=== PATIENT | male | born 1965 | race Caucasian/White ===

== ENCOUNTER 2019-01-21 20:23 | Inpatient (IN) ==
[2019-01-21 22:20] LABS: BASO# 0.05 X1000 (0.0-0.2); BASO% 0.4 % (0.0-0.8); EOS# 0.15 X1000 (0.0-0.7); EOS% 1.2 % (0.0-10.0); HEMATOCRIT 37.4 % (42.0-52.0); HEMOGLOBIN 12.7 g/dL (14.0-18.0); IMM GRAN# 0.06 X1000 (0.0-0.04); IMM GRAN% 0.5 % (0.0-0.5); LYMPH# 1.87 X1000 (1.2-3.4); LYMPH% 14.6 % (20.5-51.1); MCH 30.8 PG (27-31); MCV 90.8 FL (81-99); MONO# 0.99 X1000 (0.11-0.59); MONO% 7.7 % (1.7-9.3); MPV 11.1 FL (7.4-10.4); NEUT# 9.67 X1000 (1.4-6.5); NEUT% 75.6 % (42.2-75.2); PLT 267 X1000 (130-400); RBC 4.12 XMIL (4.7-6.1); RDW 12.3 % (11.5-14.5); WBC 12.79 X1000 (4.8-10.8)
[2019-01-21 23:09] LABS: AGAP 17; ALB/GLOB RATIO 1.6; ALBUMIN 4.1 g/dL (3.5-5.0); ALKALINE PHOSPHATASE 92 U/L (32-122); BUN 16 mg/dL (8-22); CALCIUM 9.5 mg/dL (8.8-10.2); CHLORIDE 99 mmol/L (98-107); COSMO 278; CREATININE 1.4 mg/dL (0.7-1.2); ESTIMATED GFR 53; GLUCOSE 183 mg/dL (70-104); GOT 16 U/L (10-34); GPT 15 U/L (10-44); POTASSIUM 4.5 mmol/L (3.5-5.1); SODIUM 136 mmol/L (136-145); TCO2 20 mmol/L (25-35); TOTAL BILIRUBIN < 0.15 mg/dL (0.20-1.00); TOTAL PROTEIN 6.7 g/dL (6.3-8.3)
[2019-01-23 07:40] LABS: BASO# 0.06 X1000 (0.0-0.2); BASO% 0.8 % (0.0-0.8); EOS% 2.8 % (0.0-10.0); HEMATOCRIT 36.7 % (42.0-52.0); HEMOGLOBIN 12.4 g/dL (14.0-18.0); IMM GRAN# 0.05 X1000 (0.0-0.04); IMM GRAN% 0.7 % (0.0-0.5); LYMPH# 1.65 X1000 (1.2-3.4); LYMPH% 23.3 % (20.5-51.1); MCH 30.8 PG (27-31); MCHC 33.8 g/dL (33-37); MCV 91.1 FL (81-99); MONO# 0.62 X1000 (0.11-0.59); MONO% 8.8 % (1.7-9.3); MPV 10.9 FL (7.4-10.4); NEUT% 63.6 % (42.2-75.2); PLT 244 X1000 (130-400); RBC 4.03 XMIL (4.7-6.1); RDW 12.1 % (11.5-14.5); WBC 7.08 X1000 (4.8-10.8)
[2019-01-23 07:56] LABS: AGAP 11; BUN 10 mg/dL (8-22); CALCIUM 8.9 mg/dL (8.8-10.2); CHLORIDE 99 mmol/L (98-107); COSMO 275; CREATININE 0.9 mg/dL (0.7-1.2); ESTIMATED GFR > 60; GLUCOSE 238 mg/dL (70-104); POTASSIUM 4.9 mmol/L (3.5-5.1); SODIUM 134 mmol/L (136-145); TCO2 24 mmol/L (25-35)
[2019-01-26 11:37] VITALS: BP 134/80
== END 2019-01-26 11:57 | disposition home or self-care (01) | DRG 617 ==
LOC: ED 20:23 → SUATTDRO 20:24 → EDIPHOLD 20:24 → 4N 01-22 08:02
PROVIDERS: ATTEND Emergency Medicine

== ENCOUNTER 2019-03-24 09:22 | Inpatient (IN) ==
[2019-03-24] MEDS ORDERED: REGLAN IV ONE ×2 (09:34→11:37)
[2019-03-24] MEDS ORDERED: NS 1,000 ML IV ONE ×2 (09:34→10:37)
--- NOTE | 2019-03-24 09:39 | PROVIDER DOCUMENTATION ---
HPI-General Adult - General Chief Complaint: Altered Mental Status Stated Complaint: HIGG BLOOD SUGAR Time Seen by Provider: 03/24/19 09:32 Source: family () Allergies/Adverse Reactions: Patient Allergies Allergy/AdvReac Type Severity Reaction Status Date / Time ondansetron [From Zofran] Allergy NAUSEA/VOMI Verified 03/24/19 10:03 TING Home Medications: Home Medication List Medication Instructions Recorded Confirmed Last Taken Type Bupropion HCl [Wellbutrin Xl] 300 mg PO DAILY 03/24/19 03/24/19 Unknown History Dicyclomine [Bentyl] 10 mg PO DAILY 03/24/19 03/24/19 Unknown History Glipizide 20 mg PO DAILY 03/24/19 03/24/19 Unknown History Hydrocodone/APAP 10 mg/325 mg 1 tab PO PRN PRN 03/24/19 03/24/19 Unknown History [[place]-10] LISINOpril [Prinivil] 5 mg PO DAILY 03/24/19 03/24/19 Unknown History Metoclopramide [Reglan] 10 mg PO DAILY 03/24/19 03/24/19 Unknown History PRAVAstatin [Pravachol] 20 mg PO DAILY 03/24/19 03/24/19 Unknown History Sitagliptin Phos/Metformin HCl 1 tab PO BID 03/24/19 03/24/19 Unknown History [Janumet 50-1,000 mg Tablet] Sucralfate [Carafate] 1 gm PO BID 03/24/19 03/24/19 Unknown History Varenicline Tartrate [Chantix] 1 tab PO DAILY 03/24/19 03/24/19 Unknown History - History of Present Illness -Gen Adult Nature of Presenting Problems: patient presented with complaint of nausea and vomiting, then collapsed at the triage desk. Per his , he told her he was sick last night and did not take his diabetes medicines. She states that he has a history of gastroparesis and has had similar symptoms in the past. She denies that he has had any other symptoms recently. Patient appeared in acute distress and required immediate attention upon arrival. Review of Systems - Adult - REVIEW OF SYSTEMS - ADULT ROS:: ROS per family Constitutional: reports: no symptoms reported Eyes: reports: no symptoms reported Ears, Nose, Mouth & Throat: reports: no symptoms reported Cardiovascular: reports: no symptoms reported Respiratory: reports: no symptoms reported Gastrointestinal: reports: see HPI Genitourinary: reports: no symptoms reported Musculoskeletal: reports: no symptoms reported Integumentary: reports: no symptoms reported Neurological: reports: no symptoms reported Psychiatric: reports: no symptoms reported Endocrine: reports: no symptoms reported Hematologic/Lymphatic: reports: no symptoms reported Allergic/Immunologic: reports: no symptoms reported All Other Systems: Reviewed and Negative Past History - Adult - PAST MEDICAL HISTORY-ADULT Review of Records: reports: Old Records Reviewed Physical Exam-General - PHYSICAL EXAM-ADULT Initial Vital Signs Reviewed: Yes - CONSTITUTIONAL General Appearance: moderate distress, lethargic (opens eyes, follow basic commands) - EYES Eyes: PERRL/EOMI, pink conjunctivae - HEAD, EARS, NOSE, MOUTH & THROAT HENMT: normocephalic/atraumatic, moist mucous membranes - NECK Neck: non-tender, full range of motion - RESPIRATORY Respiratory: chest non-tender, lungs clear, normal breath sounds - CARDIOVASCULAR Cardiovascular: normal peripheral pulses, regular rate, rhythm, no edema - GASTROINTESTINAL (ABDOMEN) Abdominal Exam: non tender, soft, no organomegaly - MUSCULOSKELETAL Back Exam: normal inspection, no CVA tenderness, no vertebral tenderness Extremity: normal range of motion, non-tender, no pedal edema. negative: normal gait - SKIN Integumentary: other (prolonged cap refill). negative: normal color (peripheral cyanosis) - NEUROLOGIC Neurologic: motor weakness. negative: facial droop, focal weakness - PSYCHIATRIC Psych/Mental Status: other (does not answer questions) Progress - PLAN OF CARE/RESULTS Progress/Plan/Lab Results: Orders Category Date Time Status Nursing- Obtain EKG once Care 03/24/19 09:33 Ordered CHEST-PORTABLE [RAD] Stat Exams 03/24/19 09:[address] HEAD W/O CONTRAST [CT] Stat Exams 03/24/19 09:33 Ordered CBC WITH ELECTRONIC DIFF [HEME] Stat Lab 03/24/19 09:33 Uncollected CK PROFILE [SP CHEM] Stat Lab 03/24/19 09:34 Uncollected COMPREHENSIVE METABOLIC PANEL [CHEM] Stat Lab 03/24/19 09:33 Uncollected LACTATE, PLASMA [CHEM] Stat Lab 03/24/19 09:33 Uncollected LIPASE [CHEM] Stat Lab 03/24/19 09:33 Uncollected TROPONIN T HIGH SENSITIVITY Stat Lab 03/24/19 09:33 Uncollected URINALYSIS W/POSS RFLX CULT [URINALYSIS] Stat Lab 03/24/19 09:33 Uncollected Metoclopramide [Reglan] Med 03/24/19 09:34 Once 10 mg IV NOW ONE Ns 1000 ml IV Bolus X1 Med 03/24/19 09:34 Ordered 0.9% Sodium Chloride Inj [Ns] 1,000 ml IV 999 mls/hr patient became progressively more awake, complainin of foot pain. He also had 2-3 episodes of vomiting. His states that usually he responds well to Bentyl. Hyperkalemia noted and treated. Discussed with hospitalist service with plan for admission. Result Diagrams: 03/24/19 09:37 03/24/19 09:37 - CT/MRI 1 CT Study: Head (neg) Departure - Departure Date of Disposition Decision: 03/24/19 Time of Disposition Decision: 13:34 DIAGNOSIS: Hyperkalemia Altered mental status Qualifiers: Altered mental status type: stupor Qualified Code(s): R40.1 - Stupor Disposition: ADMITTED INPATIENT 09 Certified Medical Emergency: Emergent Condition: Serious Referrals and Follow-Ups: Sung Nunez MD [Primary Care Provider] - - Critical Care Note This patient required my direct & personal management of CC.: Yes Total Time (mins): 39 Critical Care Statement: This patient required my direct personal management to treat or rule out processes, the absence of which, could potentiallly result in sudden, clinically significant life or limb threatening deterioration. Attestation - Physician/ TORI Attestation Patient care was provided by Advanced Practice Provider:: No The physician spent face to face time with patient:: Yes Advanced Practice Provider documentation review:: Supervising physician onsite and consulted in the evaluation and care of this patient. The physician did have a face to face encounter with the patient.
[2019-03-24 10:00] LABS: BASO# 0.03 X1000 (0.0-0.2); BASO% 0.2 % (0.0-0.8); EOS# 0.12 X1000 (0.0-0.7); HEMATOCRIT 40.5 % (42.0-52.0); HEMOGLOBIN 13.9 g/dL (14.0-18.0); LYMPH% 11.3 % (20.5-51.1); MCH 30.4 PG (27-31); MCHC 34.3 g/dL (33-37); MCV 88.6 FL (81-99); MONO# 0.46 X1000 (0.11-0.59); MONO% 3.7 % (1.7-9.3); MPV 10.9 FL (7.4-10.4); NEUT# 10.34 X1000 (1.4-6.5); NEUT% 83.8 % (42.2-75.2); PLT 310 X1000 (130-400); RBC 4.57 XMIL (4.7-6.1); RDW 13.4 % (11.5-14.5); WBC 12.35 X1000 (4.8-10.8)
[2019-03-24 10:02] LABS: INR 0.96; PROTIME 12.9 Seconds (11.0-16.0)
[2019-03-24 10:03] LABS: PTT 24.8 Seconds (22.3-41.8)
--- NOTE | 2019-03-24 10:23 | Diag Imaging Result Doc PS360 ---
EXAM: CHEST-PORTABLE HISTORY: ams TECHNIQUE: Two views COMPARISON: 01/22/2019 FINDINGS: The lungs are well expanded. The heart is not enlarged. The vessels are not distended. There are no infiltrates. No effusion identified. IMPRESSION: Negative exam. Electronically signed by Aguila Darby 03/24/2019 10:21 AM
[2019-03-24 10:31] LABS: AGAP 11; ALB/GLOB RATIO 1.6; ALBUMIN 4.6 g/dL (3.5-5.0); ALKALINE PHOSPHATASE 82 U/L (32-122); BUN 17 mg/dL (8-22); CALCIUM 10.5 mg/dL (8.8-10.2); CHLORIDE 91 mmol/L (98-107); CK PROFILE 138 U/L (24-204); COSMO 278; CREATININE 1.2 mg/dL (0.7-1.2); ESTIMATED GFR > 60; GLUCOSE 377 mg/dL (70-104); GOT 12 U/L (10-34); GPT 12 U/L (10-44); LIPASE 21 U/L (13-60); SODIUM 130 mmol/L (136-145); TCO2 28 mmol/L (25-35); TOTAL BILIRUBIN 0.43 mg/dL (0.20-1.00); TOTAL PROTEIN 7.5 g/dL (6.3-8.3)
[2019-03-24] MEDS ORDERED: SODIUM BICARBONATE 8.4% IV ONE (10:35)
[2019-03-24] MEDS ORDERED: HUMULIN R IV ONE (10:35)
[2019-03-24] MEDS ORDERED: D50W SYRINGE IV ONE (10:35)
[2019-03-24 10:37] LABS: POTASSIUM 6.9 mmol/L (3.5-5.1)
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
[2019-03-24 11:31] LABS: URINE SOURCE CLEAN CATCH
[2019-03-24 11:34] LABS: BILIRUBIN URINE NEGATIVE (NEGATIVE); BLOOD URINE NEGATIVE (NEGATIVE); COLOR YELLOW; GLUCOSE URINE >1000 mg/dL (NEGATIVE); KETONE URINE 20 mg/dL (NEGATIVE); LEUKOCYTES URINE NEGATIVE (NEGATIVE); NITRITE URINE NEGATIVE (NEGATIVE); PH URINE 7.5; PROTEIN URINE TRACE mg/dL (NEGATIVE); SP GRAVITY URINE 1.027; TURBIDITY URINE CLEAR (CLEAR); UROBILINOGEN URINE NORMAL (NORMAL)
[2019-03-24 11:35] LABS: UR EPITHELIAL CELLS <10 /HPF (<10); URINE BACTERIA NEGATIVE /HPF; URINE RBC <10 /HPF (<10); URINE WBC <10 /HPF (<10)
[2019-03-24] MEDS ORDERED: NORCO-5 PO ONE (11:37)
[2019-03-24] MEDS: NS 1,000 ML IV SCH ×2 (12:30→21:17)
[2019-03-24] MEDS ORDERED: SODIUM CHLORIDE 0.9% INJ SCH ×2 (12:30→16:00)
[2019-03-24] MEDS ORDERED: PROTONIX IV SCH (12:30)
[2019-03-24] MEDS: CARAFATE LIQUID PO SCH ×2 (13:29→20:00)
[2019-03-24] MEDS ORDERED: BENTYL IM ONE ×2 (13:33→18:00)
--- NOTE | 2019-03-24 13:34 | ED EKG INTERP ---
This chart was entered by Tosin Aguayo Scribe, acting as scribe for Luke Beal MD. EKG Interpretation - EKG Time of EKG reading by physician:: 09:35 EKG Read and Signed by:: Luke Beal EKG Interpretation (*Must complete 3 of following elements*): Abnormal Rate: 89 Rhythm: sinus rhythm with fusion complexes [place]: left MO Interval: normal Comments: abnormal ECG Attestation - Physician/ TORI Attestation Patient care was provided by Advanced Practice Provider:: No The physician spent face to face time with patient:: Yes Advanced Practice Provider documentation review:: Supervising physician onsite and consulted in the evaluation and care of this patient. The physician did have a face to face encounter with the patient. This chart was documented by the indicated scribe, (Tosin Aguayo Scribe) and accurately reflects the services I performed and decisions made by me, Luke Beal MD, as attested by the provider's signature.
--- NOTE | 2019-03-24 13:54 | EKG Report ---
Test Performed on : 03/24/2019 09:35:21 AM Test Reason : UNRESPONSIVE Blood Pressure : / mmHG Vent. Rate : 089 BPM Atrial Rate : 089 BPM P-R Int : 144 ms QRS Dur : 088 ms QT Int : 320 ms P-R-T Axes : 038 -65 052 degrees QTc Int : 389 ms Sinus rhythm. with fusion complexes Left axis deviation Abnormal ECG No previous ECGs available Unconfirmed Result
--- NOTE | 2019-03-24 13:55 | Diag Imaging Result Doc PS360 ---
CT ABDOMEN/PELVIS W/O CONTRAST - 03/24/2019 INDICATION: flank pain COMPARISON: 08/25/2012 FINDINGS: There are several bilateral renal stones. These measure up to about 6 mm. No ureteral or bladder stone. No hydronephrosis or hydroureter. There are some scattered phleboliths in the pelvis. The lung bases are clear and the heart size is normal. Abdominal organs are all normal. No bowel obstruction or inflammation. Normal appendix. Urinary bladder, prostate, and rectum are normal. Bones are intact and well mineralized. IMPRESSION: Bilateral nonobstructing renal stones. This exam was performed using automated exposure control, adjustment of mA or kV according to patient size, and/or use of iterative reconstruction technique Electronically signed by Erwin Delgado 03/24/2019 1:53 PM
[2019-03-24 15:13] LABS: ESTIMATED GFR > 60
[2019-03-24 15:22] LABS: AGAP 13; BUN 15 mg/dL (8-22); CALCIUM 9.1 mg/dL (8.8-10.2); CHLORIDE 101 mmol/L (98-107); COSMO 292; CREATININE 0.9 mg/dL (0.7-1.2); GLUCOSE 284 mg/dL (70-104); MAGNESIUM 0.9 mg/dL (1.5-2.7); POTASSIUM 4.4 mmol/L (3.5-5.1); SODIUM 141 mmol/L (136-145); TCO2 27 mmol/L (25-35)
[2019-03-24] MEDS ORDERED: MAGNESIUM SULFATE 2 GM/S.W.I. 2 GM/50 ML IVPB IV ONE (15:22)
[2019-03-24] MEDS: MORPHINE IV PRN ×2 (15:57→21:26)
[2019-03-24] MEDS: HUMALOG SUBQ SCH ×2 (16:00→21:25)
[2019-03-24] MEDS: PEPCID IV SCH (16:13)
[2019-03-24] MEDS: REGLAN IV SCH ×2 (17:38→23:47)
--- NOTE | 2019-03-24 19:09 | HISTORY AND PHYSICAL ---
ADDENDUM: The patient was seen and examined by me [id number]. All the laboratory, vital signs and images were reviewed. Apparently this patient came to the emergency department with nausea and vomiting that has been going on for a little bit. Apparently since yesterday he was feeling sick, and he basically collapsed and had a syncopal episode at the triage desk in this hospital. He has not been taking his medication for diabetes. He has a history of gastroparesis and he has been having similar episodes in the past. He was complaining of some abdominal discomfort yesterday, so we did an abdominal and pelvic ultrasound that did not show any acute process, but bilateral nonobstructing renal stones. He came in hyperkalemic. That was treated, and now the potassium level is within normal limits. Also he has hypomagnesemia which is quite severe at 0.9, and we will replace it. He received a dose of Bentyl and seems to be working, so I will repeat it this afternoon and I will continue with Reglan 4 times a day. Probably tomorrow we will stop the IV and treatment, and I will put him on p.o. treatment if this patient is doing better. For now, we will continue with the IV fluids as well. I do not really have any source of infection. I do believe the leukocyte count is elevated because it is reactive. I will continue to monitor this patient closely. He does have severe peripheral vascular disease and is really sensitive to touch at the level of the lower extremities. He recently had an amputation of his little toe on the left side, that apparently is healing fine and he has been seen by his orthopedic surgeon yesterday. I will stop the Protonix because this can cause hypomagnesemia, and I will put him on Pepcid. I agree with the rest of the nurse practitioner's assessment and plan. cc: Valentín Ruiz MD
[2019-03-24 19:54] LABS: UR AMPHETAMINES QUAL NONE DETECTED (NONE DETECT); UR BARBITUATES QUAL NONE DETECTED (NONE DETECT); UR BENZODIAZEPIN QUAL NONE DETECTED (NONE DETECT); UR CANNABINOIDS QUAL NONE DETECTED (NONE DETECT); UR COCAINE QUAL NONE DETECTED (NONE DETECT); UR METHADONE QUAL NONE DETECTED (NONE DETECT); UR OPIATES QUAL PRESUMPTIVE POSITIVE (NONE DETECT); UR OXYCODONE QUAL NONE DETECTED (NONE DETECT); UR PCP QUAL NONE DETECTED (NONE DETECT)
[2019-03-24] MEDS: ZOSYN 3.375 GM in NS 50 ML IV SCH (21:17)
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
[2019-03-25] MEDS: MORPHINE IV PRN ×2 (00:54→04:47)
[2019-03-25] MEDS: ZOSYN 3.375 GM in NS 50 ML IV SCH ×2 (02:04→07:32)
[2019-03-25] MEDS: CARAFATE LIQUID PO SCH ×4 (02:04→20:42)
[2019-03-25] MEDS: PEPCID IV SCH ×2 (03:28→17:06)
[2019-03-25] MEDS: REGLAN IV SCH (06:24)
[2019-03-25] MEDS: NS 1,000 ML IV SCH ×3 (06:41→21:00)
[2019-03-25] MEDS: HUMALOG SUBQ SCH ×4 (06:41→20:42)
[2019-03-25 06:53] LABS: BASO# 0.05 X1000 (0.0-0.2); BASO% 0.4 % (0.0-0.8); EOS# 0.05 X1000 (0.0-0.7); EOS% 0.4 % (0.0-10.0); HEMATOCRIT 36.6 % (42.0-52.0); HEMOGLOBIN 12.1 g/dL (14.0-18.0); IMM GRAN# 0.02 X1000 (0.0-0.04); IMM GRAN% 0.2 % (0.0-0.5); LYMPH# 1.64 X1000 (1.2-3.4); LYMPH% 14.7 % (20.5-51.1); MCH 29.7 PG (27-31); MCHC 33.1 g/dL (33-37); MCV 89.7 FL (81-99); MONO# 0.92 X1000 (0.11-0.59); MONO% 8.2 % (1.7-9.3); MPV 11.2 FL (7.4-10.4); NEUT# 8.51 X1000 (1.4-6.5); NEUT% 76.1 % (42.2-75.2); PLT 290 X1000 (130-400); RBC 4.08 XMIL (4.7-6.1); RDW 13.3 % (11.5-14.5); WBC 11.19 X1000 (4.8-10.8)
[2019-03-25 07:14] LABS: HEMOGLOBIN A1C 10.1 % (4.8-6.0)
[2019-03-25 07:38] LABS: AGAP 13; ALB/GLOB RATIO 1.5; ALBUMIN 3.8 g/dL (3.5-5.0); ALKALINE PHOSPHATASE 69 U/L (32-122); BUN 12 mg/dL (8-22); CALCIUM 8.8 mg/dL (8.8-10.2); CHLORIDE 106 mmol/L (98-107); COSMO 286; CREATININE 0.9 mg/dL (0.7-1.2); ESTIMATED GFR > 60; GLUCOSE 218 mg/dL (70-104); GOT 19 U/L (10-34); GPT 14 U/L (10-44); MAGNESIUM 1.2 mg/dL (1.5-2.7); PHOSPHORUS 2.4 mg/dL (2.7-4.5); POTASSIUM 4.1 mmol/L (3.5-5.1); SODIUM 140 mmol/L (136-145); TCO2 21 mmol/L (25-35); TOTAL BILIRUBIN 0.36 mg/dL (0.20-1.00); TOTAL PROTEIN 6.3 g/dL (6.3-8.3)
[2019-03-25] MEDS ORDERED: MAGNESIUM SULFATE 2 GM/S.W.I. 2 GM/50 ML IVPB IV ONE (07:40)
--- NOTE | 2019-03-25 08:40 | PROGRESS NOTE ---
DATE: 03/25/2019 SUBJECTIVE: The patient seems to be doing much better. I will start giving him his diet. I will stop the IV treatment with morphine and I will put him back on his home medications, [place]. I had a large conversation with this patient about [place] and gastroparesis. I instructed the patient to take just as needed the medication only if he is really in pain because that can mess up with his bowel function and since he has a history of gastroparesis that can make it worse. He seems to understand. On the other hand, his diabetes is not well controlled and actually his hemoglobin A1c is 10.1. I will put this patient back on his home medications. His glucose level today is 218 and I do believe with the treatment it is going to get better. He is on glipizide and Janumet. I will continue to monitor these and depending on the blood sugar during the day and tomorrow, I will do changes. His magnesium level is still low but better compared with yesterday. I will replace it again. Potassium level within normal limits. OBJECTIVE: Vital Signs: Temperature 99.2 degrees, pulse 69, respiratory rate 23, blood pressure 117/67, oxygen saturation 98 on room air. HEENT: Head normocephalic. No trauma. PERRLA. Neck: Supple. No JVD. No masses. Central trachea. Chest: Clear to auscultation. No wheezing. No rales. Cardiovascular: RRR. Extremities: No edema, no clubbing, no cyanosis. He does have an amputation of the little toe that is covered with a new dressing and he has some sensitivity to palpation at the level of the lower extremities due to peripheral neuropathy. Neurological: The patient is awake, alert. He is oriented x3. No focal neurological deficits. LABORATORY: WBC 11.1, hemoglobin 12.1, hematocrit 36.6, platelets 290,000. Sodium 140, potassium 4.1, chloride 106, bicarbonate 21, BUN 12, creatinine 0.9. Glucose 218, calcium 8.8, phosphorus 2.4, magnesium 1.2. ASSESSMENT AND PLAN: 1. Intractable nausea and vomiting, this is much better. I will start this patient on a diet. I will start with liquid diet first and then I will advanced as tolerated. He does have a history of gastroparesis and probably this is 1 of the problems. In the other hand his diabetes seems to be not well controlled. His hemoglobin A1c is 10.1. I had a large conversation with this patient about this. He seems to understand. 2. Uncontrolled type 2 diabetes. Like I mentioned before his hemoglobin A1c is elevated at 10.1. I do not think he has been taking care of his diet and/or treatment at home. Education has been provided. 3. Hyperkalemia, resolved. 4. Syncopal episode likely due to dehydration. He seems to be better today. I will ask for physical therapy to evaluate this patient. 5. Dehydration, resolved. I will continue with gentle IV fluids. He seems to be hydrated. No kidney injury. 6. Severe peripheral neuropathy. I will start this patient on a low dose of gabapentin, and hopefully this can be increased depending on the symptoms. 7. Leukocytosis, likely reactive. 8. Gastroparesis. As per the patient, it is really well controlled with Bentyl and Reglan once a day so I will put him back on his medication to see how he does. 9. Hypomagnesemia. I will replace the magnesium. I do believe this patient is doing better. I will transfer this patient to the floor. I will put him back on his home medications. I will ask for physical therapy to evaluate this patient as well. Hopefully by tomorrow if everything is okay hopefully, I can send this patient home. cc: Valentín Ruiz MD
[2019-03-25] MEDS ORDERED: GLUCOTROL PO SCH (09:00)
[2019-03-25] MEDS ORDERED: NEURONTIN PO SCH (09:00)
[2019-03-25] MEDS: WELLBUTRIN XL PO SCH (09:30)
[2019-03-25] MEDS: BENTYL PO SCH (09:31)
[2019-03-25] MEDS: GLUCOTROL PO SCH (09:31)
[2019-03-25] MEDS: NEURONTIN PO SCH ×2 (09:32→20:41)
[2019-03-25] MEDS: PRINIVIL PO SCH (09:32)
[2019-03-25] MEDS: GLUCOPHAGE PO SCH ×2 (09:32→20:41)
[2019-03-25] MEDS: REGLAN PO SCH (09:32)
[2019-03-25] MEDS: JANUVIA PO SCH ×2 (09:32→20:41)
[2019-03-25] MEDS: NORCO-10 PO PRN ×2 (09:35→17:48)
[2019-03-26] MEDS: NORCO-10 PO PRN ×2 (02:43→11:49)
[2019-03-26] MEDS: CARAFATE LIQUID PO SCH ×3 (02:43→13:27)
[2019-03-26] MEDS ORDERED: REGLAN IV PRN (02:49)
[2019-03-26] MEDS: PEPCID IV SCH ×2 (03:24→17:21)
[2019-03-26 05:56] LABS: BASO# 0.06 X1000 (0.0-0.2); BASO% 0.7 % (0.0-0.8); EOS# 0.11 X1000 (0.0-0.7); EOS% 1.2 % (0.0-10.0); HEMATOCRIT 40.4 % (42.0-52.0); HEMOGLOBIN 13.4 g/dL (14.0-18.0); IMM GRAN# 0.02 X1000 (0.0-0.04); IMM GRAN% 0.2 % (0.0-0.5); LYMPH# 1.67 X1000 (1.2-3.4); LYMPH% 18.5 % (20.5-51.1); MCH 30.3 PG (27-31); MCHC 33.2 g/dL (33-37); MCV 91.4 FL (81-99); MONO# 0.59 X1000 (0.11-0.59); MONO% 6.5 % (1.7-9.3); MPV 10.7 FL (7.4-10.4); NEUT# 6.56 X1000 (1.4-6.5); NEUT% 72.9 % (42.2-75.2); PLT 284 X1000 (130-400); RBC 4.42 XMIL (4.7-6.1); RDW 13.5 % (11.5-14.5); WBC 9.01 X1000 (4.8-10.8)
[2019-03-26 06:21] LABS: AGAP 13; BUN 9 mg/dL (8-22); CALCIUM 9.3 mg/dL (8.8-10.2); CHLORIDE 103 mmol/L (98-107); COSMO 282; CREATININE 0.9 mg/dL (0.7-1.2); ESTIMATED GFR > 60; GLUCOSE 208 mg/dL (70-104); MAGNESIUM 1.3 mg/dL (1.5-2.7); PHOSPHORUS 2.5 mg/dL (2.7-4.5); POTASSIUM 3.8 mmol/L (3.5-5.1); SODIUM 139 mmol/L (136-145); TCO2 23 mmol/L (25-35)
[2019-03-26] MEDS: HUMALOG SUBQ SCH ×3 (06:52→16:46)
[2019-03-26] MEDS ORDERED: MAGNESIUM SULFATE 2 GM/S.W.I. 2 GM/50 ML IVPB IV ONE (06:55)
[2019-03-26] MEDS ORDERED: DULCOLAX PR ONE (07:15)
[2019-03-26] MEDS: PHENERGAN PO PRN ×2 (08:09→14:56)
[2019-03-26] MEDS: GLUCOTROL PO SCH (08:09)
[2019-03-26] MEDS: GLUCOPHAGE PO SCH (08:10)
[2019-03-26] MEDS: BENTYL PO SCH (08:10)
[2019-03-26] MEDS: REGLAN PO SCH (08:10)
[2019-03-26] MEDS: WELLBUTRIN XL PO SCH (08:10)
[2019-03-26] MEDS: JANUVIA PO SCH (08:10)
[2019-03-26] MEDS: NEURONTIN PO SCH (08:11)
[2019-03-26] MEDS ORDERED: LANTUS INSULIN SUBQ SCH (09:00)
[2019-03-26] MEDS ORDERED: MIRALAX PO SCH (09:00)
--- NOTE | 2019-03-26 09:19 | PROGRESS NOTE ---
DATE: 03/26/2019 SUBJECTIVE: The patient seems to be doing much better. He is still complaining of some mild nausea, but he is tolerating liquids. I will advance the diet. He seems to be constipated, so I will give him a Dulcolax suppository and MiraLAX by mouth. Probably this constipation is related to pain medication which should be stopped slowly by the patient. This has been already discussed with the patient and the as well. I will see how he does during the day and probably I will discharge this patient in the afternoon. I will see if he is able to tolerate better diet, and having bowel movements and no nausea. OBJECTIVE: Vital signs: Temperature 98.7, pulse 61, respiratory rate 20, blood pressure 135/73, oxygen saturation 98 on room air. HEENT: Head normocephalic, no trauma. PERRLA. Neck: Neck is supple. No JVD. No masses. Central trachea. Chest: Clear to auscultation. No wheezing. No rales. Cardiovascular: RRR. Extremities: No clubbing, no clubbing, no cyanosis. He does have an amputation of the little toe that is covered with a dressing. No signs of infection. He does have peripheral neuropathy and is sensitive to touch at the level of the lower extremities. Neurological examination: The patient is awake. He is oriented x3. No focal neurological deficits. LABORATORY: WBC 9, hemoglobin 13.4, hematocrit 40.4, platelet 294. Sodium 138, potassium 3.8, chloride 103, bicarbonate 23. BUN 9, creatinine 0.9, glucose 208, calcium 9.3, magnesium 1.3. ASSESSMENT AND PLAN: 1. Intractable nausea and vomiting. This is much better. I will advance his diet. He is still complaining of some nausea. His hemoglobin A1c is 10.1, and he has apparently a history of gastroparesis. 2. Uncontrolled type 2 diabetes, complicated with gastroparesis. His hemoglobin A1c is 10.1. I will start this patient on a long-acting insulin to see how he does. Education has been provided. 3. Hyperkalemia, resolved. 4. Syncopal episode likely due to dehydration, better. Physical therapy on board. 5. Dehydration, resolved. 6. Severe peripheral neuropathy likely due to his uncontrolled diabetes. I have started this patient on a low dose of gabapentin, and hopefully this can be monitored by his primary care doctor. 7. Leukocytosis likely reactive, resolved. 8. Hypomagnesemia. I will replace the magnesium again. 9. Constipation. I will give him MiraLAX by mouth, and he will receive a suppository of Dulcolax. I talked to him about narcotic use and constipation and decreased bowel function. He seems to understand. The patient seems to be stable. I will re-evaluate this patient in the afternoon, and hopefully he can be discharged home today in the afternoon or tomorrow morning. cc: Valentín Ruiz MD
[2019-03-26] MEDS: PRINIVIL PO SCH (09:30)
[2019-03-26] MEDS: NS 1,000 ML IV SCH (10:24)
[2019-03-26 16:18] VITALS: BP 141/83
--- NOTE | 2019-03-27 17:58 | DISCHARGE SUMMARY ---
ADMISSION DATE: 03/24/2019 DISCHARGE DATE: 03/26/2019 DISCHARGE DIAGNOSES: 1. Intractable nausea and vomiting, resolved. 2. Uncontrolled type 2 diabetes, complicated with possible gastroparesis, hemoglobin A1c 10.1. 3. Hyperkalemia, resolved. 4. Syncopal episode likely due to dehydration, better, resolved. 5. Dehydration resolved. 6. Severe peripheral neuropathy, likely due to his uncontrolled diabetes. 7. Leukocytosis, reactive, resolved. 8. Hypomagnesemia, has been replaced. 9. Constipation. 10. Hypertension, stable. PROCEDURES PERFORMED: 1. Chest x-ray dated 03/24/2019. Impression: Negative exam. 2. Head CT scan dated 03/24/2019. Impression: No acute disease. 3. Abdomen and pelvis CT scan dated 03/24/2019. Impression: Bilateral nonobstructing renal stones. HOSPITAL COURSE: A 53-year-old, male with a past medical history of uncontrolled diabetes, presented to the emergency department complaining of nausea and vomiting that started the morning of admission on 03/24/2019. Apparently the night before he went to the bed, he was complaining of some nausea and he had some low back pain. He slept on a heating pad, woke up the morning of admission and said that his back was better. The states that he got up out of the bed and he became nauseated and started vomiting and he progressed. Therefore, they presented to the emergency to the emergency room. According to the chart, Mr. Yanez had presyncope or syncopal episode in triage and he was lift lifted up and assisted into a wheelchair and then assisted into the stretcher in the emergency room. At the time of our examination he was awake, he was oriented. He responded to every question, but he was asking for pain medication because he was hurting and still having nausea and vomiting. I had a really long conversation with this patient because apparently he has a history of gastroparesis and he has been on Bentyl and Reglan at home once a day. He received a couple doses IM of Bentyl here and some Reglan and that seemed to work. His blood sugar was really uncontrolled upon admission at 377. His magnesium level also was low at 0.9, and it was getting better because we have been replacing the magnesium. When he came in he had acute kidney injury. His creatinine was 1.2 and now is 0.9, his blood sugar is much better, but I had to start this patient on insulin Lantus 10 units daily, he seems to be tolerating this really well. His leukocytosis upon admission was around 12, but I believe this is reactive because today it was 9 and he is not on any antibiotics. In general, he is feeling much better and he desires to go home today. I talked to both of them extensively about diabetes, his hemoglobin A1c is 10.1, which means that he has been uncontrolled at home or he is not taking his medications. He will follow up with his primary doctor in a week or less than a week. Also, I had a conversation with the patient about diet and exercise extensively. We will arrange diabetes education for this patient as well. He will be discharged home. He is feeling much better. He is not having nausea, vomiting. He is tolerating p.o. I asked the patient to eat small meals multiple times a day. LABORATORY: WBC 9, hemoglobin 13.4, hematocrit 40.4, platelets 284,000. Sodium 139, potassium 3.8, chloride 103, bicarbonate 23, BUN 9, creatinine 0.9. Glucose 208, calcium 9.3, phosphorus 2.5, magnesium 1.3. HEENT: Head normocephalic. No trauma. PERRLA. Neck: Supple. No JVD. No masses. Central trachea. Chest: Clear to auscultation. No wheezing. No rales. Abdomen: Soft, nontender, nondistended. No hepatosplenomegaly. Extremities: No clubbing, no cyanosis. 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 Neurologic: The patient is awake, alert, he is oriented x3. No focal neurological deficits. DISCHARGE MEDICATIONS: 1. Insulin glargine 10 units subcu daily. 2. Armodafinil 200 mg daily. 10 mg p.o. daily as needed for constipation. Bupropion 300 mg p.o. daily. 3. Bentyl 20 mg p.o. daily. Famotidine 20 mg p.o. b.i.d., gabapentin 100 mg p.o. b.i.d., glipizide 10 mg p.o. daily. 4. [place] 10 one tablet p.o. as needed for pain every 8 hours. Lisinopril 5 mg p.o. daily, Reglan 10 mg p.o. daily, pravastatin 40 mg p.o. daily, Janumet p.o. b.i.d., Carafate 1 g p.o. b.i.d., and Chantix 1 tablet p.o. daily. TIME SPENT AT DISCHARGE: Time discharging this patient and discussing with them diabetes, followups, diet and exercise around 40 minutes. cc: Valentín Ruiz MD
== END 2019-03-26 17:44 | disposition home or self-care (01) | DRG 74 ==
LOC: ED 09:22 → EDIPHOLD 19:27 → ICU 23:07 → 3N 03-26 14:47
PROVIDERS: ATTEND Internal Medicine